=== PATIENT | female | born 1960 | race Caucasian/White ===

== ENCOUNTER 2022-03-26 04:31 | Day surgery (SDC) | payer OTHER ==
[2022-03-25 09:28] VITALS: BMI 27.8
[2022-03-26] MEDS ORDERED: ONDANSETRON 4 MG/2 ML VIAL IVPUSH PRN (09:40)
[2022-03-26] MEDS ORDERED: LACTATED RINGERS SOLUTION 1,000 ML IV SCH (09:45)
[2022-03-26 10:19] VITALS: TEMP 98
[2022-03-26 11:01] VITALS: BP 98/66; PULSE 67; RESP 10
== END 2022-03-26 11:29 | disposition home or self-care (01) ==
LOC: JASU-ENDO 04:31
PROVIDERS: ATTEND Internal Medicine Gastroenterology
PROC: 0DBN8ZX Excision of Sigmoid Colon, Via Natural or Artificial Opening Endoscopic, Diagnostic (ICD-10-PCS; 2022-03-26)
PROC: 0DBP8ZX Excision of Rectum, Via Natural or Artificial Opening Endoscopic, Diagnostic (ICD-10-PCS; 2022-03-26)
PROC: 0DBH8ZX Excision of Cecum, Via Natural or Artificial Opening Endoscopic, Diagnostic (ICD-10-PCS; 2022-03-26)
PROC: 0DBK8ZX Excision of Ascending Colon, Via Natural or Artificial Opening Endoscopic, Diagnostic (ICD-10-PCS; principal; 2022-03-26 09:30)
DX: Z12.11 Encounter for screening for malignant neoplasm of colon (principal); Z86.010 Personal history of colon polyps; D12.2 Benign neoplasm of ascending colon; D12.0 Benign neoplasm of cecum; D12.7 Benign neoplasm of rectosigmoid junction; K62.1 Rectal polyp
CPT/HCPCS: 88305-TC